=== PATIENT | female | born 1940 | race Caucasian/White ===

== ENCOUNTER → 2017-09-03 | Outpatient (CLI) | payer MEDICARE, OTHER ==
[~2017-09-03] MED LIST: ASPI81TA3 PO; ATEN50TA PO; CLOP75TA27 PO; ENAL5TAB PO; NITR0.4T32 SL; ROSU40TA35 PO; SOLI5TAB5 PO
== END | disposition home or self-care (01) ==
LOC: EEG 10:39
PROVIDERS: ATTEND Family Medicine Adult Medicine
DX: G40.909 Epilepsy, unspecified, not intractable, without status epilepticus (principal)
CPT/HCPCS: 95819

== ENCOUNTER 2017-10-28 16:07 | Inpatient (IN) | END 2017-11-02 19:11 | disposition home health service (06) | DRG 101 ==

== ENCOUNTER 2018-02-25 01:32 | Observation (INO) | END 2018-02-26 19:20 | disposition home or self-care (01) ==

== ENCOUNTER 2018-12-15 17:07 | Observation (INO) | payer MEDICARE, OTHER ==
[~2018-12-15] VITALS: Ht 162.6 cm; Wt 69.8 kg
[~2018-12-15 17:07] MED LIST changes: +ASPI-817 PO; -ASPI81TA3 PO; +CALC500T11 PO; +CHOL100062 PO; +CLOP75TA19 PO; -CLOP75TA27 PO; -ENAL5TAB PO; +EZET1TAB42 PO; +GABA300C16 PO; +LACO100T3 PO; +LOSA25TA12 PO; -NITR0.4T32 SL; +OLOP2.5D5 OP; -ROSU40TA35 PO; +SOLI5TAB2 PO; -SOLI5TAB5 PO; +TERB250T46 PO
[2018-12-15] MEDS ORDERED: ACETAMINOPHEN 325 MG TAB PO PRN ×2 (18:30→19:00)
[2018-12-15] MEDS ORDERED: ONDANSETRON 4 MG INJ IV PRN ×2 (18:30→19:00)
[2018-12-15] MEDS ORDERED: POTASSIUM CHLORIDE (SR) 20 MEQ TAB PO STA (18:33)
--- NOTE | 2018-12-15 18:34 | ERD ---
ER Documentation Chief Complaint Chief Complaint chest pain since this morning HPI This is a 78-year-old female with a history of hypertension, hyperlipidemia, previous [place] and quadruple bypass with previous CVA who presents to the ER for evaluation of chest pain. The patient states the chest pain is located in the center of the chest and is described as a pressure-like sensation. In route to the hospital the patient received aspirin and nitro and she states that her pain has improved slightly however it is still present. The patient denies any nausea, vomiting, diaphoresis, diarrhea associated with her symptoms and came to the ER for evaluation ROS All systems reviewed and are negative except as per history of present illness. Medications Home Meds Reported Medications Calcium Carbonate (Oysco-500) 500 Mg Tablet, 500 MG PO, TAB 02/25/18 Cholecalciferol* (Vitamin D3*) 1,000 Unit Tablet, 3000 UNIT PO DAILY, TAB 02/25/18 Aspirin* (Aspirin* EC) 81 Mg Tablet.dr, 81 MG PO DAILY, TAB 02/25/18 Clopidogrel Bisulfate* (Clopidogrel Bisulfate*) 75 Mg Tablet, 75 MG PO DAILY, #30 TAB 02/25/18 Losartan Potassium* (Losartan Potassium*) 25 Mg Tablet, 25 MG PO BID, TAB 02/25/18 Gabapentin* (Gabapentin*) 300 Mg Capsule, 300 MG PO BID, #60 CAP 02/25/18 Terbinafine* (Lamisil*) 250 Mg Tablet, 250 MG PO BID, TAB 02/25/18 Atenolol* (Atenolol*) 50 Mg Tablet, 50 MG PO DAILY, #30 TAB 02/25/18 Olopatadine HCl (Pazeo) 2.5 Ml Drops, 2.5 ML OP DAILY, BOTTLE 10/26/17 Lacosamide (Vimpat) 100 Mg Tablet, 100 MG PO BID, TAB 10/26/17 Ezetimibe/Simvastatin (Vytorin 10-40 mg Tablet) 1 Each Tablet, 1 EACH PO DAILY, TAB 10/26/17 Solifenacin* (Vesicare*) 5 Mg Tablet, 5 MG PO DAILY, TAB 01/09/16 Allergies Allergies: Coded Allergies: No Known Allergy (Unverified , 02/26/18) PMhx/Soc History of Surgery: Yes (bypass, hip replacement) Anesthesia Reaction: Yes Hx Neurological Disorder: No Hx Respiratory Disorders: No Hx Cardiac Disorders: Yes (stent placements , HTN, high colsterol) Hx Psychiatric Problems: No Hx Miscellaneous Medical Probl: No Hx Alcohol Use: No Hx Substance Use: No Hx Tobacco Use: No Smoking Status: Never smoker Physical Exam Vitals Vital Signs Date Temp Pulse Resp B/P (MAP) Pulse Ox O2 O2 Flow FiO2 Time Delivery Rate 12/15/18 97.8 67 18 162/98 96 17:22 (119) Physical Exam Const: No acute distress Head: Atraumatic Eyes: Normal Conjunctiva ENT: Normal External Ears, Nose and Mouth. Neck: Full range of motion. No meningismus. Resp: Clear to auscultation bilaterally Cardio: Regular rate and rhythm, no murmurs Abd: Soft, non tender, non distended. Normal bowel sounds Skin: No petechiae or rashes Back: No midline or flank tenderness Ext: No cyanosis, or edema Neur: Awake and alert Psych: Normal Mood and Affect Result Diagram: 12/15/18 1735 12/15/18 1735 Results 24 hrs Laboratory Tests Test 12/15/18 17:35 White Blood Count 7.7 10^3/ul Red Blood Count 4.23 10^6/ul Hemoglobin 14.4 g/dl Hematocrit 42.8 % Mean Corpuscular Volume 101.2 fl Mean Corpuscular Hemoglobin 34.0 pg Mean Corpuscular Hemoglobin Concent 33.6 g/dl Red Cell Distribution Width 12.6 % Platelet Count 208 10^3/UL Mean Platelet Volume 9.5 fl Immature Granulocytes % 0.400 % Neutrophils % 73.1 % Lymphocytes % 11.5 % Monocytes % 14.4 % Eosinophils % 0.0 % Basophils % 0.6 % Nucleated Red Blood Cells % 0.0 /100WBC Immature Granulocytes # 0.030 10^3/ul Neutrophils # 5.7 10^3/ul Lymphocytes # 0.9 10^3/ul Monocytes # 1.1 10^3/ul Eosinophils # 0.0 10^3/ul Basophils # 0.1 10^3/ul Nucleated Red Blood Cells # 0.0 10^3/ul Sodium Level 137 mmol/L Potassium Level 3.1 mmol/L Chloride Level 100 mmol/L Carbon Dioxide Level 26 mmol/L Anion Gap 11 Blood Urea Nitrogen 13 mg/dl Creatinine 0.68 mg/dl Est Glomerular Filtrat Rate mL/min mL/min Glucose Level 117 mg/dl Calcium Level 9.0 mg/dl Total Bilirubin 0.6 mg/dl Direct Bilirubin 0.00 mg/dl Indirect Bilirubin 0.6 mg/dl Aspartate Amino Transf (AST/SGOT) 58 IU/L Alanine Aminotransferase (ALT/SGPT) 32 IU/L Alkaline Phosphatase 110 IU/L Troponin I < 0.012 ng/ml B-Type Natriuretic Peptide 604 PG/ML Total Protein 6.4 g/dl Albumin 3.6 g/dl Globulin 2.80 g/dl Albumin/Globulin Ratio 1.28 Current Medications Medications Dose Sig/Georgette Start Time Status Last (Trade) Ordered Route PRN Stop Time Admin Dose Reason Admin Ondansetron 4 mg ER BRIDGE 12/15/18 HCl (Zofran PRN IV 18:30 Inj) NAUSEA/VOMITI 12/16/18 18:29 NG 650 mg ER BRIDGE 12/15/18 Acetaminophen PRN PO 18:30 (Tylenol .MILD PAIN 12/16/18 18:29 Tab) 1-3 OR TEMP Procedures/MDM Chest X-ray 1V Interpreted by me: Soft Tissue: No acute abnormalities Bones: No acute abnormalities Mediastinum/Cardiac Silhouette/Lungs: [No acute abnormalities] EKG: Rate/Rhythm: Sinus rhythm with PVCs QRS, ST, T-waves: [No changes consistent w/ acute ischemia] Impression: [No evidence of ischemia or arrhythmia] This 78-year-old female presents to the ER for evaluation of chest pain. The patient does have a significant cardiac history including a quadruple bypass. On my exam the patient is afebrile, nontoxic-appearing and hemodynamically stable in no respiratory distress. Her lab work does not demonstrate an elevate d troponin at this time and her EKG does show normal sinus rhythm with PVCs. Chest x-ray is clear however given the patient's age and risk factors the patient will be admitted at this time for further evaluation and continued monitoring and repeat troponins. The patient will be admitted to panel harry Oconnor. Patient did have a potassium of 3.1 was given 40 MeQ once of potassium by mouth Departure Diagnosis: Primary Impression: Chest pain Additional Impression: Hypokalemia Condition: PANKAJ Edwards DO Dec 15, 2018 18:34
[2018-12-15] MEDS ORDERED: NACL 0.9% 3 ML SYG IV SCH (19:00)
[2018-12-15] MEDS ORDERED: NITROGLYCERIN (SL) 0.4 MG TAB SL PRN (19:00)
[2018-12-15] MEDS ORDERED: hydrALAzine 20 MG INJ IV PRN (19:00)
[2018-12-15] MEDS ORDERED: HYDROCODONE/APAP (5/325) TAB PO PRN (19:00)
[2018-12-15 20:00] VITALS: PULSE 85; Ht 162.6 cm; Wt 69.8 kg
[2018-12-15 20:30] VITALS: BP 153/87; PULSE 82; RESP 18
[2018-12-15] MEDS ORDERED: ATORVASTATIN 80 MG TAB PO SCH (21:00)
[2018-12-15] MEDS: morphine 2 MG INJ IV PRN (21:01)
--- NOTE | 2018-12-15 23:48 | HP ---
Date/Time of Note Date/Time of Note DATE: 12/15/18 TIME: 23:48 Assessment/Plan VTE Prophylaxis Pharmacological prophylaxis: heparin Lines/Catheters IV Catheter Type (from Nrsg): Saline Lock Assessment/Plan Assessment/Plan 1. Chest pain: Rule out ACS -Supplemental oxygen, aspirin/Plavix, statin, beta-abdulaziz. As needed nitro and morphine -Trend troponin -2D echo and cardiology consult 2. Hypertension: Adjust BP meds as needed 3. Dyslipidemia: Continue statin 4. Hypokalemia: Replete Result Diagram: 12/15/18 1735 12/15/18 1735 Results 24hrs Laboratory Tests Test 12/15/18 17:35 White Blood Count 7.7 Red Blood Count 4.23 Hemoglobin 14.4 Hematocrit 42.8 Mean Corpuscular Volume 101.2 H Mean Corpuscular Hemoglobin 34.0 H Mean Corpuscular Hemoglobin Concent 33.6 Red Cell Distribution Width 12.6 Platelet Count 208 # Mean Platelet Volume 9.5 Immature Granulocytes % 0.400 Neutrophils % 73.1 Lymphocytes % 11.5 L Monocytes % 14.4 H Eosinophils % 0.0 Basophils % 0.6 Nucleated Red Blood Cells % 0.0 Immature Granulocytes # 0.030 Neutrophils # 5.7 Lymphocytes # 0.9 Monocytes # 1.1 H Eosinophils # 0.0 Basophils # 0.1 Nucleated Red Blood Cells # 0.0 Sodium Level 137 Potassium Level 3.1 L Chloride Level 100 Carbon Dioxide Level 26 Anion Gap 11 Blood Urea Nitrogen 13 Creatinine 0.68 Est Glomerular Filtrat Rate mL/min Glucose Level 117 Calcium Level 9.0 Total Bilirubin 0.6 Direct Bilirubin 0.00 Indirect Bilirubin 0.6 Aspartate Amino Transf (AST/SGOT) 58 H Alanine Aminotransferase (ALT/SGPT) 32 Alkaline Phosphatase 110 Troponin I < 0.012 B-Type Natriuretic Peptide 604 H Total Protein 6.4 Albumin 3.6 Globulin 2.80 Albumin/Globulin Ratio 1.28 HPI/ROS Admit Date/Time Admit Date/Time Dec 15, 2018 at 18:24 Hx of Present Illness This is a 78-year-old female with a history of hypertension, dyslipidemia, CAD status post stent, CABG in 2000 who presented to ER complaining of chest pain x 1 day. The pain is left-sided, described as sharp. It is nonradiating. No associated shortness of breath, nausea/vomiting or diaphoresis. She told me that she has not had any chest pain since her CABG in 2000. In the ER, first troponin is negative. EKG without ST elevation or depression. 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 PMH/Family/Social Past Medical History Medications Current Medications IV Flush (NS 3 ml) 3 ml PER PROTOCOL IV ; Start 12/15/18 at 19:00 Ondansetron HCl (Zofran Inj) 4 mg Q6H PRN IV NAUSEA/VOMITING; Start 12/15/18 at 19:00 Aspirin (Aspirin) 81 mg DAILY PO ; Start 12/16/18 at 09:00 Nitroglycerin (Nitroglycerin (Sl Tab) 0.4 Mg) 1 tab Q5M PRN SL .CHEST PAIN; Start 12/15/18 at 19:00 Acetaminophen (Tylenol Tab) 650 mg Q6H PRN PO .PAIN 1-3 OR TEMP; Start 12/15/18 at 19:00 Acetaminophen/ Hydrocodone Bitart ([place]gora (5/325)) 1 tab Q6H PRN PO .PAIN 4-6 Last administered on 12/15/18at 22:48; Admin Dose 1 TAB; Start 12/15/18 at 19:00 Morphine Sulfate (morphine) 2 mg Q4H PRN IV .PAIN 7-10 Last administered on 12/15/18at 21:01; Admin Dose 2 MG; Start 12/15/18 at 19:00 Hydralazine HCl (Apresoline) 10 mg Q4H PRN IV sbp >160; Start 12/15/18 at 19:00 Atorvastatin Calcium (Lipitor) 80 mg HS PO Last administered on 12/15/18at 21:04; Admin Dose 80 MG; Start 12/15/18 at 21:00 Coded Allergies: No Known Allergy (Unverified , 02/26/18) Past Surgical History Past Surgical Hx: other Family History Significant Family History: no pertinent family hx Social History Smoking Status: Never smoker Exam/Review of Systems Vital Signs Vitals Vital Signs Date Temp Pulse Resp B/P (MAP) Pulse Ox O2 O2 Flow FiO2 Time Delivery Rate 12/15/18 85 20:00 12/15/18 18 171/97 100 Room Air 18:59 (121) 12/15/18 97.8 17:22 ALETHEA SNELL MD Dec 15, 2018 23:48
[2018-12-15 23:54] VITALS: BP 151/65; PULSE 82; RESP 18
[2018-12-16] VITALS (11 sets, daily range): BP systolic 101–148; BP diastolic 56–76; PULSE 63–83; RESP 18–20
[2018-12-16] MEDS: morphine 2 MG INJ IV PRN ×2 (01:18→08:29)
[2018-12-16] MEDS: EZETIMIBE 10 MG TAB PO SCH (08:27)
[2018-12-16] MEDS: ASPIRIN 81 MG TAB PO SCH (08:27)
[2018-12-16] MEDS: GABAPENTIN 300 MG CAP PO SCH ×2 (08:27→20:31)
[2018-12-16] MEDS: CLOPIDOGREL 75 MG TAB PO SCH (08:28)
[2018-12-16] MEDS: ATENOLOL 50 MG TAB PO SCH (08:28)
[2018-12-16] MEDS: LOSARTAN 25 MG TAB PO SCH ×2 (08:28→20:31)
[2018-12-16] MEDS: ATORVASTATIN 20 MG TAB PO SCH (08:28)
[2018-12-16] MEDS: LACOSAMIDE (100 MG/10 ML PO SYR) PO SCH ×3 (08:28→20:47)
[2018-12-16] MEDS ORDERED: NON-FORMULARY/PATIENT OWN MED (Olopatadine HCl (Pazeo) 2.5 ML) OP SCH (09:00)
[2018-12-16] MEDS ORDERED: NON-FORMULARY/PATIENT OWN MED (Lacosamide (Vimpat) 100 MG) PO SCH (09:00)
[2018-12-16] MEDS ORDERED: POTASSIUM CHLORIDE (SR) 20 MEQ TAB PO STA (14:23)
[2018-12-16] MEDS ORDERED: MAGNESIUM SULFATE 4 GM/100 ML 100 ML IVPB ONE (15:30)
--- NOTE | 2018-12-16 18:42 | PN ---
Date/Time of Note Date/Time of Note DATE: 12/16/18 TIME: 18:41 Assessment/Plan VTE Prophylaxis Risk score (from Ns)>0 risk: 4 SCD applied (from Ns): Yes Pharmacological prophylaxis: other (scds) Lines/Catheters IV [facility] Saline Lock Assessment/Plan Hospital Course S: Stll having chest pain, but its located around the lower L chest and upper L abdomen, intermittent and sharp and relieved with morphine O: Constitutional: alert, oriented, elderly, no distress Head: atraumatic, normocephalic Neck: non-tender, supple Respiratory: clear to auscultation Cardiovascular: regular rate and rhythm Gastrointestinal: S/ NT / ND / +BS Extremities: no edema, good radial pulses assessment and plan: 1. Chest pain: Rule out ACS -patient has had 3 negative cardiac enzymes but is still symptomatic with an extensive cardiac hx -last stress test was 5 years ago -will benefit from repeat -also f/u 2d echo -will also get CT to eval for possible L sided atelectasis in CXR, but patient has had no cough or fever so RTI is less likely 2. Hypertension: controlled on current meds 3. Dyslipidemia: Continue statin 4. Hypokalemia: Replete further interventions per course. Result Diagram: 12/16/1852612/16/18526 Results 24hrs Laboratory Tests Test 12/15/18 23:34 12/16/18 05:27 Creatine Kinase 26 22 L Creatine Kinase Index 1.7 1.9 Creatinine Kinase MB (Mass) 0.44 0.42 Troponin I 0.017 0.017 White Blood Count 5.8 # Red Blood Count 3.93 L Hemoglobin 13.3 Hematocrit 39.8 Mean Corpuscular Volume 101.3 H Mean Corpuscular Hemoglobin 33.8 H Mean Corpuscular Hemoglobin Concent 33.4 Red Cell Distribution Width 12.3 Platelet Count 204 Mean Platelet Volume 9.9 Immature Granulocytes % 0.300 Neutrophils % 51.9 Lymphocytes % 28.2 Monocytes % 17.7 H Eosinophils % 1.0 Basophils % 0.9 Nucleated Red Blood Cells % 0.0 Immature Granulocytes # 0.020 Neutrophils # 3.0 Lymphocytes # 1.6 Monocytes # 1.0 H Eosinophils # 0.1 Basophils # 0.1 Nucleated Red Blood Cells # 0.0 Sodium Level 138 Potassium Level 3.3 L Chloride Level 100 Carbon Dioxide Level 29 Anion Gap 9 Blood Urea Nitrogen 12 Creatinine 0.61 Est Glomerular Filtrat Rate mL/min Glucose Level 92 Hemoglobin A1c 4.9 Calcium Level 8.6 Magnesium Level 1.2 L Total Bilirubin 0.8 Direct Bilirubin 0.00 Indirect Bilirubin 0.8 Aspartate Amino Transf (AST/SGOT) 38 Alanine Aminotransferase (ALT/SGPT) 37 Alkaline Phosphatase 97 Total Protein 5.8 L Albumin 3.1 L Globulin 2.70 Albumin/Globulin Ratio 1.14 Triglycerides Level 74 Cholesterol Level 183 LDL Cholesterol, Calculated 83 HDL Cholesterol 85 Cholesterol/HDL Ratio 2.1 Exam/Review of Systems Exam Vitals Vital Signs Date Temp Pulse Resp B/P (MAP) Pulse Ox O2 O2 Flow FiO2 Time Delivery Rate 12/16/18 97.4 66 18 116/76 92 16:02 (89) 12/16/18 Room Air 04:04 Intake and Output 12/15/18 12/15/18 12/16/18 1515:00 23:00 07:00 IntakeIntake Total 250 ml BalanceBalance 250 ml Results Results 24hrs Laboratory Tests Test 12/15/18 23:34 12/16/18 05:27 Creatine Kinase 26 22 L Creatine Kinase Index 1.7 1.9 Creatinine Kinase MB (Mass) 0.44 0.42 Troponin I 0.017 0.017 White Blood Count 5.8 # Red Blood Count 3.93 L Hemoglobin 13.3 Hematocrit 39.8 Mean Corpuscular Volume 101.3 H Mean Corpuscular Hemoglobin 33.8 H Mean Corpuscular Hemoglobin Concent 33.4 Red Cell Distribution Width 12.3 Platelet Count 204 Mean Platelet Volume 9.9 Immature Granulocytes % 0.300 Neutrophils % 51.9 Lymphocytes % 28.2 Monocytes % 17.7 H Eosinophils % 1.0 Basophils % 0.9 Nucleated Red Blood Cells % 0.0 Immature Granulocytes # 0.020 Neutrophils # 3.0 Lymphocytes # 1.6 Monocytes # 1.0 H Eosinophils # 0.1 Basophils # 0.1 Nucleated Red Blood Cells # 0.0 Sodium Level 138 Potassium Level 3.3 L Chloride Level 100 Carbon Dioxide Level 29 Anion Gap 9 Blood Urea Nitrogen 12 Creatinine 0.61 Est Glomerular Filtrat Rate mL/min Glucose Level 92 Hemoglobin A1c 4.9 Calcium Level 8.6 Magnesium Level 1.2 L Total Bilirubin 0.8 Direct Bilirubin 0.00 Indirect Bilirubin 0.8 Aspartate Amino Transf (AST/SGOT) 38 Alanine Aminotransferase (ALT/SGPT) 37 Alkaline Phosphatase 97 Total Protein 5.8 L Albumin 3.1 L Globulin 2.70 Albumin/Globulin Ratio 1.14 Triglycerides Level 74 Cholesterol Level 183 LDL Cholesterol, Calculated 83 HDL Cholesterol 85 Cholesterol/HDL Ratio 2.1 Medications Medication Current Medications IV Flush (NS 3 ml) 3 ml PER PROTOCOL IV ; Start 12/15/18 at 19:00 Ondansetron HCl (Zofran Inj) 4 mg Q6H PRN IV NAUSEA/VOMITING; Start 12/15/18 at 19:00 Aspirin (Aspirin) 81 mg DAILY PO Last administered on 12/16/18 08:27; Admin Dose 81 MG; Start 12/16/18 at 09:00 Nitroglycerin (Nitroglycerin (Sl Tab) 0.4 Mg) 1 tab Q5M PRN SL .CHEST PAIN; Start 12/15/18 at 19:00 Acetaminophen (Tylenol Tab) 650 mg Q6H PRN PO .PAIN 1-3 OR TEMP; Start 12/15/18 at 19:00 Acetaminophen/ Hydrocodone Bitart ([place]ol (5/325)) 1 tab Q6H PRN PO .PAIN 4-6 Last administered on 12/15/18at 22:48; Admin Dose 1 TAB; Start 12/15/18 at 19:00 Morphine Sulfate (morphine) 2 mg Q4H PRN IV .PAIN 7-10 Last administered on 12/16/18 08:29; Admin Dose 2 MG; Start 12/15/18 at 19:00 Hydralazine HCl (Apresoline) 10 mg Q4H PRN IV sbp >160; Start 12/15/18 at 19:00 Atenolol (Tenormin) 50 mg DAILY PO Last administered on 12/16/18 08:28; Admin Dose 50 MG; Start 12/16/18 at 09:00 Clopidogrel Bisulfate (plaVIX) 75 mg DAILY PO Last administered on 12/16/18 08:28; Admin Dose 75 MG; Start 12/16/18 at 09:00 Gabapentin (Neurontin) 300 mg BID PO Last administered on 12/16/18 08:27; Admin Dose 300 MG; Start 12/16/18 at 09:00 Losartan Potassium (Cozaar) 25 mg BID PO Last administered on 12/16/18 08:28; Admin Dose 25 MG; Start 12/16/18 at 09:00 EZETIMIBE (Zetia) 10 mg DAILY PO Last administered on 12/16/18 08:27; Admin Dose 10 MG; Start 12/16/18 at 09:00 Miscellaneous Information 2.5 ml DAILY OP ; Start 12/16/18 at 09:00; Status UNV Lacosamide (Vimpat Liq) 100 mg BID PO Last administered on 12/16/18at 08:28; Admin Dose 100 MG; Start 12/16/18 at 09:00 Atorvastatin Calcium (Lipitor) 20 mg DAILY PO Last administered on 12/16/18 08:28; Admin Dose 20 MG; Start 12/16/18 at 09:00 Magnesium Sulfate 100 ml @ 25 mls/hr ONCE ONCE IVPB Last administered on 12/16/18at 15:51; Admin Dose 25 MLS/HR; Start 12/16/18 at 15:30; Stop 12/16/18 at 19:29 GARY HALLMAN Dec 16, 2018 18:42
--- NOTE | 2018-12-16 18:59 | CONS ---
DATE OF ADMISSION: 12/15/2018 DATE OF CONSULTATION: 12/16/2018 TYPE OF CONSULTATION: Cardiology. REASON FOR CONSULTATION: Chest pain, assess for acute coronary syndrome. REQUESTING PHYSICIAN: Gary Hallman MD, from the hospitalist service. HISTORY OF PRESENT ILLNESS: Ms. Puga is a 78-year-old female with history of hypertension, dyslipidemia, coronary artery disease, status post coronary artery bypass graft surgery with a patent saphenous vein graft to diagonal and retrograde flow to the LAD and to right coronary artery by catheterization in 2015 with a presumed occluded saphenous vein graft to circumflex, who now presents with complaints of substernal chest pain poorly described. The patient does not clearly respond to questioning with chest pain, shortness of breath at this time. Initially upon arrival, temperature was 97.8, blood pressure 162/98, pulse 69, respiration 18, satting 93%. The patient's labs showed white blood cell count 7.7, hemoglobin 14.4, platelet count of 208, sodium 137, potassium 3.1, creatinine of 0.6, BUN 13, magnesium 1.2. Troponin is negative. BNP is 604. LDL 83, HDL 85. The patient underwent a chest x-ray that revealed mild cardiomegaly, moderate elevation of left diaphragm with left lower lobe atelectasis. The patient's electrocardiogram revealed a sinus rhythm, rate of 84, normal axis, normal intervals with nonspecific ST-T wave abnormalities diffusely and PVCs. The patient was subsequently admitted to the floor and since admit to the floor has had intermittent chest pain. The patient has had negative troponins times total of 3 ruling out acute myocardial infarction. PAST MEDICAL HISTORY: As above in HPI. MEDICATIONS CURRENTLY IN HOSPITAL: 1. Aspirin 81 mg daily. 3. Plavix 75 mg daily. 4. Neurontin 200 mg b.i.d. 5. Losartan 25 mg b.i.d. 6. Zetia 10 mg daily. 7. Atorvastatin 10 mg at bedtime. 8. Zofran p.r.n. 9. Tylenol p.r.n. 10. Nitroglycerin p.r.n. 11. [place] p.r.n. 12. Morphine p.r.n. ALLERGIES: NO KNOWN DRUG ALLERGIES. SOCIAL HISTORY: No current tobacco, EtOH or illicit drug use. FAMILY HISTORY: No history of sudden cardiac or early CAD. REVIEW OF SYSTEMS: As above in HPI. CONSTITUTIONAL: No fevers, chills. PULMONARY: No current shortness of breath. CARDIOVASCULAR: No chest pain. GASTROINTESTINAL: No vomiting. GENITOURINARY: No hematuria. MUSCULOSKELETAL: Degenerative joint disease. PSYCHIATRIC: The patient denies depression. NEUROLOGIC: No documented history of CVA. ENDOCRINE: No documented history of diabetes mellitus. PHYSICAL EXAMINATION: VITAL SIGNS: Temperature of 97.4, blood pressure 130/80 pulse 66, respiratory rate 18, satting 93%. GENERAL: The patient is alert, awake, in no acute distress. NECK: JVP approximately is 8 to 9 cm of water. CHEST: Fair air movement throughout. HEART: Regular rate and rhythm. Normal S1, S2, I/ systolic murmur, nondisplaced PMI. ABDOMEN: Positive bowel sounds, soft. EXTREMITIES: No significant pitting edema, 1+ pulses bilateral posterior tibial. LABORATORIES: As above in HPI, with most recently from today, white blood cell count 5.8, hemoglobin 13.3, platelet count of 204. Sodium 138, potassium 3.3, creatinine of 0.6, BUN 12. IMAGING STUDIES: As above in HPI. No further imaging studies for my review at this time. ELECTROCARDIOGRAM: As above in HPI. No further electrocardiograms for my review at this time. IMPRESSION: 1. Chest pain, assess for acute coronary syndrome with negative troponins x3 at this time. 2. Abnormal electrocardiogram with diffuse nonspecific ST and T-wave abnormalities, assess for acute coronary syndrome. 3. Premature ventricular contractions by electrocardiogram, assess for acute coronary syndrome. 4. Hypertension, reasonable control. 5. Dyslipidemia. 6. History of coronary artery disease, status post coronary artery bypass grafting surgery with patient having a patent graft to diagonal retrograde filling the LAD and right coronary artery by catheterization in 2016 with presumed occluded saphenous vein graft to circumflex distribution. 7. Neuropathy. RECOMMENDATIONS: 1. At this time, we would maintain the patient on telemetry monitoring to follow rhythm and rates closely. 2. We would continue the patient's current aspirin and Plavix for prevention of further cardiovascular events. 3. Continue the patient's losartan and atenolol, following blood pressure and heart rate closely. 4. We will check a 2D echo for reassessment of patient's ejection fraction, last EF approximately 40% to 45% by echo in 02/2018. 5. Continue the patient's current Zetia and statin and adjust it according to a fasting lipid panel to be rechecked. 6. The patient has ruled out but continues to have chest pain, we will additionally schedule patient for further inpatient risk stratification with a stress test to take place first thing in the morning. Thank you for allowing me to take part in the care of this patient. I will continue to follow her very closely with you with further recommendations will be made as the patient progresses through her inpatient hospital clinical course. Dictated By: MINNIE VALENCIA/WILLIAN Conf#: [id number] DID#: [id number] CC: ALETHEA SNELL MD; GARY HALLMAN MD;*EndCC* MTDD
--- NOTE | 2018-12-16 21:19 | RADRPT ---
Echocardiogram Report Patient Name: Basilio DONAHUEtient ID: [id number] : 1940 (78y 7m)Study Date: 12/16/2018 7:29:27 AM Gender: FAccession #: [id number] Tech: Ruth Ospina [facility] Location: 6 Ref.Physician: ALETHEA SNELL Height(Cm): BSA: Weight(Kg): Quality: Technically Difficult StudyAccount #: Procedures: Echocardiographic Report: Transthoracic echocardiogram with complete 2D, M-Mode, and doppler examination. Indications: Chest Pain. Measurements: 2D/M Mode Doppler Measurement Value Normal Range Measurement Value Normal Range LVIDd 2D 4.7 [ 3.8 - 5.2 ] cm AV Peak Tim 1.7 [ 100.0 - 170.0 ] cm/sec LVIDs 2D 3.9 [ 2.2 - 3.5 ] cm AV Peak PG 12.0 [ 2.0 - 9.0 ] mmHg LVPWd 2D 1.0 [ 0.6 - 0.9 ] cm LVOT Peak Tim 0.8 [ 70.0 - 110.0 ] cm/sec IVSd 2D 1.3 [ 0.6 - 0.9 ] cm LVOT Peak PG 3.0 [ 2.0 - 6.0 ] mmHg AoR Diam 2D 3.0 [ 2.3 - 3.1 ] cm EDV 2D 100.0 [ 46.0 - 106.0 ] ml ESV 2D 67.1 [ 14.0 - 42.0 ] ml EF 2D 32.9 [ 54.0 - 74.0 ] percent LA Dimen 2D 4.1 [ 2.7 - 3.8 ] cm Findings: Left Ventricle: Normal left ventricular cavity size. Mild asymmetric septal hypertrophy. Mild left ventricular systolic dysfunction. Ejection fraction is visually estimated at 40-45 %. Tissue Doppler/Mitral Doppler indices are consistent with impaired relaxation (Stage I diastolic dysfunction). Right Ventricle: Normal right ventricular size. Normal right ventricular systolic function. Left Atrium: There is mild enlargement of left atrium. Right Atrium: The right atrium is normal in size. Mitral Valve: Normal appearance of the mitral valve. Mild mitral annular calcification. Trace mitral regurgitation. Aortic Valve: Aortic valve not well visualized. Aortic cusps appear mildly calcified. Tricuspid Valve: Normal appearance of the tricuspid valve. Unable to obtain RVSP due to minimal presence of tricuspid regurgitation. Pulmonic Valve: Normal pulmonic valve appearance. Pericardium: Normal pericardium with no significant pericardial effusion. Aorta: Normal aortic root. IVC: Normal size and normal respiratory collapse consistent with normal right atrial pressure. Conclusions: Normal left ventricular cavity size. Mild asymmetric septal hypertrophy. Mild left ventricular systolic dysfunction. Ejection fraction is visually estimated at 40-45 %. Tissue Doppler/Mitral Doppler indices are consistent with impaired relaxation (Stage I diastolic dysfunction). There is mild enlargement of left atrium. Normal appearance of the mitral valve. Mild mitral annular calcification. Trace mitral regurgitation. Normal appearance of the tricuspid valve. Unable to obtain RVSP due to minimal presence of tricuspid regurgitation. Electronically Signed By: Dilshad Duncan 2018-12-16 21:19:17 PST
[2018-12-17] VITALS (9 sets, daily range): BP systolic 113–137; BP diastolic 58–76; PULSE 62–77; RESP 18–20
[2018-12-17] MEDS: CLOPIDOGREL 75 MG TAB PO SCH (08:51)
[2018-12-17] MEDS: GABAPENTIN 300 MG CAP PO SCH (08:51)
[2018-12-17] MEDS: EZETIMIBE 10 MG TAB PO SCH (08:52)
[2018-12-17] MEDS: ASPIRIN 81 MG TAB PO SCH (08:52)
[2018-12-17] MEDS: ATORVASTATIN 20 MG TAB PO SCH (08:52)
[2018-12-17] MEDS: LOSARTAN 25 MG TAB PO SCH (08:53)
[2018-12-17] MEDS: ATENOLOL 50 MG TAB PO SCH (08:53)
[2018-12-17] MEDS ORDERED: REGADENOSON 0.4 MG/5 ML SYG ONE (10:11)
--- NOTE | 2018-12-17 11:03 | CONS ---
Assessment/Plan Assessment/Plan Hospital Course (Demo Recall) IMPRESSION: 1. Chest pain, assess for acute coronary syndrome with negative troponins x3 at this time. 2. Abnormal electrocardiogram with diffuse nonspecific ST and T-wave abnormalities, assess for acute coronary syndrome. 3. Premature ventricular contractions by electrocardiogram, assess for acute coronary syndrome. 4. Hypertension, reasonable control. 5. Dyslipidemia. 6. History of coronary artery disease, status post coronary artery bypass grafting surgery with patient having a patent graft to diagonal retrograde filling the LAD and right coronary artery by catheterization in 2016 with presumed occluded saphenous vein graft to circumflex distribution. 7. Neuropathy. Recc: -Tele -Contine asa/plavix -Continue losartan/atenolol -Continue zetia/statin -Lexiscan stress test today Consultation Date/Type/Reason Admit Date/Time Dec 15, 2018 at 18:24 Initial Consult Date 12/16/18 Type of Consult Cardiology Reason for Consultation chest pain Requesting Provider: GARY HALLMAN Date/Time of Note DATE: 12/17/18 TIME: 11:00 Exam/Review of Systems Vital Signs Vitals Vital Signs Date Temp Pulse Resp B/P (MAP) Pulse Ox O2 O2 Flow FiO2 Time Delivery Rate 12/17/18 70 08:23 12/17/18 98.3 18 137/74 95 07:21 (95) 12/16/18 Room Air 04:04 Intake and Output 12/16/18 12/16/18 12/17/18 1515:00 23:00 07:00 IntakeIntake Total 620 ml BalanceBalance 620 ml Exam Exam Review of Systems: CONSTITUTIONAL: No fevers, chills. PULMONARY: No sob CARDIOVASCULAR: intermittent chest pain GASTROINTESTINAL: No nausea/vomiting. GENITOURINARY: No hematuria/dysuria. MUSCULOSKELETAL: No myagias/arthalgias. PSYCHIATRIC: The patient denies depression. NEUROLOGIC: No weakness Constitutional: alert Psych: no complaints Head: normocephalic ENMT: mucosa pink and moist Neck: supple, jvd (9 cm water) Respiratory: diminished breath sounds Cardiovascular: regular rate and rhythm Gastrointestinal: soft, non-tender Musculoskeletal: muscle tone (normal) Extremities: edema (none) Neurological: other (No focal deficits) Labs Result Diagram: 12/16/18 0527 12/16/18 0527 Results 24hrs Laboratory Tests Test 12/17/18 05:09 Magnesium Level 2.2 # Triglycerides Level 78 Cholesterol Level 180 LDL Cholesterol, Calculated 84 HDL Cholesterol 80 Cholesterol/HDL Ratio 2.2 Medications Medications Current Medications IV Flush (NS 3 ml) 3 ml PER PROTOCOL IV ; Start 12/15/18 at 19:00 Ondansetron HCl (Zofran Inj) 4 mg Q6H PRN IV NAUSEA/VOMITING; Start 12/15/18 at 19:00 Aspirin (Aspirin) 81 mg DAILY PO Last administered on 12/17/18at 08:52; Admin Dose 81 MG; Start 12/16/18 at 09:00 Nitroglycerin (Nitroglycerin (Sl Tab) 0.4 Mg) 1 tab Q5M PRN SL .CHEST PAIN; Start 12/15/18 at 19:00 Acetaminophen (Tylenol Tab) 650 mg Q6H PRN PO .PAIN 1-3 OR TEMP; Start 12/15/18 at 19:00 Acetaminophen/ Hydrocodone Bitart ([place] (5/325)) 1 tab Q6H PRN PO .PAIN 4-6 Last administered on 12/15/18at 22:48; Admin Dose 1 TAB; Start 12/15/18 at 19:00 Morphine Sulfate (morphine) 2 mg Q4H PRN IV .PAIN 7-10 Last administered on 12/16/18 08:29; Admin Dose 2 MG; Start 12/15/18 at 19:00 Hydralazine HCl (Apresoline) 10 mg Q4H PRN IV sbp >160; Start 12/15/18 at 19:00 Atenolol (Tenormin) 50 mg DAILY PO Last administered on 12/17/18 08:53; Admin Dose 50 MG; Start 12/16/18 at 09:00 Clopidogrel Bisulfate (plaVIX) 75 mg DAILY PO Last administered on 12/17/18 08:51; Admin Dose 75 MG; Start 12/16/18 at 09:00 Gabapentin (Neurontin) 300 mg BID PO Last administered on 12/17/18 08:51; Admin Dose 300 MG; Start 12/16/18 at 09:00 Losartan Potassium (Cozaar) 25 mg BID PO Last administered on 12/17/18 08:53; Admin Dose 25 MG; Start 12/16/18 at 09:00 EZETIMIBE (Zetia) 10 mg DAILY PO Last administered on 12/17/18at 08:52; Admin Dose 10 MG; Start 12/16/18 at 09:00 Miscellaneous Information 2.5 ml DAILY OP ; Start 12/16/18 at 09:00; Status UNV Lacosamide (Vimpat Liq) 100 mg BID PO Last administered on 12/16/18at 08:28; Admin Dose 100 MG; Start 12/16/18 at 09:00 Atorvastatin Calcium (Lipitor) 20 mg DAILY PO Last administered on 12/17/18at 08:52; Admin Dose 20 MG; Start 12/16/18 at 09:00 MINNIE PUGH Dec 17, 2018 11:03
[2018-12-17] MEDS: LACOSAMIDE (100 MG/10 ML PO SYR) PO SCH (12:54)
--- NOTE | 2018-12-17 14:46 | PN ---
Date/Time of Note Date/Time of Note DATE: 12/17/18 TIME: 09:45 Assessment/Plan VTE Prophylaxis Risk score (from Nsg)>0 risk: 4 Pharmacological prophylaxis: NA/contraindicated Pharm contraindication: other Lines/Catheters IV Catheter Type (from Nrsg): Saline Lock Assessment/Plan Hospital Course S: no chest pain today, refused chest CT yesterday, but ok to do it now O: Constitutional: alert, oriented, elderly, no distress Head: atraumatic, normocephalic Neck: non-tender, supple Respiratory: clear to auscultation Cardiovascular: regular rate and rhythm Gastrointestinal: S/ NT / ND / +BS Extremities: no edema, good radial pulses assessment and plan: 1. Chest pain: Rule out ACS -patient has had 3 negative cardiac enzymes but is still symptomatic with an extensive cardiac hx -last stress test was 5 years ago -f/u stress test and CT chest 2. Hypertension: controlled on current meds 3. Dyslipidemia: Continue statin 4. Hypokalemia: Replete further interventions per course. Result Diagram: 12/16/1852612/16/18526 Results 24hrs Laboratory Tests Test 12/17/18 05:09 Magnesium Level 2.2 # Triglycerides Level 78 Cholesterol Level 180 LDL Cholesterol, Calculated 84 HDL Cholesterol 80 Cholesterol/HDL Ratio 2.2 Exam/Review of Systems Exam Vitals Vital Signs Date Temp Pulse Resp B/P (MAP) Pulse Ox O2 O2 Flow FiO2 Time Delivery Rate 12/17/18 62 12:21 12/17/18 98.3 18 137/74 95 07:21 (95) 12/16/18 Room Air 04:04 Intake and Output 12/16/18 12/16/18 12/17/18 1515:00 23:00 07:00 IntakeIntake Total 620 ml BalanceBalance 620 ml Results Results 24hrs Laboratory Tests Test 12/17/18 05:09 Magnesium Level 2.2 # Triglycerides Level 78 Cholesterol Level 180 LDL Cholesterol, Calculated 84 HDL Cholesterol 80 Cholesterol/HDL Ratio 2.2 Medications Medication Current Medications IV Flush (NS 3 ml) 3 ml PER PROTOCOL IV ; Start 12/15/18 at 19:00 Ondansetron HCl (Zofran Inj) 4 mg Q6H PRN IV NAUSEA/VOMITING; Start 12/15/18 at 19:00 Aspirin (Aspirin) 81 mg DAILY PO Last administered on 12/17/18 08:52; Admin Dose 81 MG; Start 12/16/18 at 09:00 Nitroglycerin (Nitroglycerin (Sl Tab) 0.4 Mg) 1 tab Q5M PRN SL .CHEST PAIN; Start 12/15/18 at 19:00 Acetaminophen (Tylenol Tab) 650 mg Q6H PRN PO .PAIN 1-3 OR TEMP; Start 12/15/18 at 19:00 Acetaminophen/ Hydrocodone Bitart ([place] (5/325)) 1 tab Q6H PRN PO .PAIN 4-6 Last administered on 12/15/18 22:48; Admin Dose 1 TAB; Start 12/15/18 at 19:00 Morphine Sulfate (morphine) 2 mg Q4H PRN IV .PAIN 7-10 Last administered on 12/16/18 08:29; Admin Dose 2 MG; Start 12/15/18 at 19:00 Hydralazine HCl (Apresoline) 10 mg Q4H PRN IV sbp >160; Start 12/15/18 at 19:00 Atenolol (Tenormin) 50 mg DAILY PO Last administered on 12/17/18 08:53; Admin Dose 50 MG; Start 12/16/18 at 09:00 Clopidogrel Bisulfate (plaVIX) 75 mg DAILY PO Last administered on 12/17/18 08:51; Admin Dose 75 MG; Start 12/16/18 at 09:00 Gabapentin (Neurontin) 300 mg BID PO Last administered on 12/17/18 08:51; Admin Dose 300 MG; Start 12/16/18 at 09:00 Losartan Potassium (Cozaar) 25 mg BID PO Last administered on 12/17/18 08:53; Admin Dose 25 MG; Start 12/16/18 at 09:00 EZETIMIBE (Zetia) 10 mg DAILY PO Last administered on 12/17/18 08:52; Admin Dose 10 MG; Start 12/16/18 at 09:00 Miscellaneous Information 2.5 ml DAILY OP ; Start 12/16/18 at 09:00; Status UNV Lacosamide (Vimpat Liq) 100 mg BID PO Last administered on 12/17/18 12:54; Admin Dose 100 MG; Start 12/16/18 at 09:00 Atorvastatin Calcium (Lipitor) 20 mg DAILY PO Last administered on 12/17/18at 08:52; Admin Dose 20 MG; Start 12/16/18 at 09:00 GARY HALLMAN Dec 17, 2018 14:46
--- NOTE | 2018-12-17 14:48 | DS ---
Date/Time of Note Date/Time of Note DATE: 12/17/18 TIME: 14:47 Discharge Summary Admission/Discharge Info Admit Date/Time Dec 15, 2018 at 18:24 Discharge Date/Time Discharge Diagnosis 1. Chest pain, assess for acute coronary syndrome with negative troponins x3 at this time. 2. Abnormal electrocardiogram with diffuse nonspecific ST and T-wave abnormalities, assess for acute coronary syndrome. 3. Premature ventricular contractions by electrocardiogram, assess for acute coronary syndrome. 4. Hypertension, reasonable control. 5. Dyslipidemia. 6. History of coronary artery disease, status post coronary artery bypass grafting surgery with patient having a patent graft to diagonal retrograde filling the LAD and right coronary artery by catheterization in 2016 with presumed occluded saphenous vein graft to circumflex distribution. 7. Neuropathy. Procedures PROCEDURE: Lexiscan myocardial perfusion study CLINICAL INDICATION: 78 -year-old patient complaining of chest pain. TECHNIQUE: Lexiscan 0.4 mg intravenously separate acquisition gated myocardial perfusion SPECT using Tc 99m Myoview 29.6 mCi intravenously at stress and Tc-99m Myoview, 9.4 mCi intravenously at rest was performed using the rest/stress sequence. Poststress Myoview SPECT images were obtained in the supine position. COMPARISON: No prior studies. FINDINGS: Perfusion images reveal a moderate size severe in degree nonreversible perfusion defect in the inferoapical and lateral peters. No evidence of stress-induced ischemia. Lexiscan post stress gated SPECT images demonstrate mild hypokinesis of the inferior and lateral peters. IMPRESSION: 1. The type and distribution of the scintigraphic abnormalities are most consistent with a moderate-sized nonreversible perfusion defect in the inferoapical and lateral peters likely due to myocardial infarction. 2. Mild hypokinesis of the inferior and lateral peters. 3. The left ventricle ejection fraction at stress is 46%. A call report was made to Dr. Duncan at 01:36 p.m. on December 17, 2018. RPTAT: HH .Catherine Jordan MD, Date Time Electronically viewed and signed by .Catherine Jordan MD, on 12/17/2018 13:40 .L/ CC: DUNCANMINNIE Velez [id number] Hospital Course S: no chest pain today, refused chest CT yesterday, but ok to do it now O: Constitutional: alert, oriented, elderly, no distress Head: atraumatic, normocephalic Neck: non-tender, supple Respiratory: clear to auscultation Cardiovascular: regular rate and rhythm Gastrointestinal: S/ NT / ND / +BS Extremities: no edema, good radial pulses assessment and plan: 1. Chest pain: Rule out ACS -patient has had 3 negative cardiac enzymes but is still symptomatic with an extensive cardiac hx -last stress test was 5 years ago -f/u stress test and CT chest 2. Hypertension: controlled on current meds 3. Dyslipidemia: Continue statin 4. Hypokalemia: Replete 5. Chronic headaches on Vimpat further interventions per course. Home Meds Reported Medications Calcium Carbonate ([place]-500) 500 Mg Tablet, 500 MG PO, TAB 02/25/18 Cholecalciferol* (Vitamin D3*) 1,000 Unit Tablet, 3000 UNIT PO DAILY, TAB 02/25/18 Aspirin* (Aspirin* EC) 81 Mg Tablet.dr, 81 MG PO DAILY, TAB 02/25/18 Clopidogrel Bisulfate* (Clopidogrel Bisulfate*) 75 Mg Tablet, 75 MG PO DAILY, #30 TAB 02/25/18 Losartan Potassium* (Losartan Potassium*) 25 Mg Tablet, 25 MG PO BID, TAB 02/25/18 Gabapentin* (Gabapentin*) 300 Mg Capsule, 300 MG PO BID, #60 CAP 02/25/18 Terbinafine* (Lamisil*) 250 Mg Tablet, 250 MG PO BID, TAB 02/25/18 Atenolol* (Atenolol*) 50 Mg Tablet, 50 MG PO DAILY, #30 TAB 02/25/18 Olopatadine HCl ([place]) 2.5 Ml Drops, 2.5 ML OP DAILY, BOTTLE 10/26/17 Lacosamide (Vimpat) 100 Mg Tablet, 100 MG PO BID, TAB 10/26/17 Ezetimibe/Simvastatin (Vytorin 10-40 mg Tablet) 1 Each Tablet, 1 EACH PO DAILY, TAB 10/26/17 Solifenacin* (Vesicare*) 5 Mg Tablet, 5 MG PO DAILY, TAB 01/09/16 Primary Care Provider Not On Staff Doctor Pending Labs Laboratory Tests Test 12/17/18 05:09 Magnesium Level 2.2 mg/dl (1.7-2.5) Triglycerides Level 78 mg/dl (0-149) Cholesterol Level 180 mg/dl (100-200) LDL Cholesterol, Calculated 84 mg/dl HDL Cholesterol 80 mg/dl (33-92) Cholesterol/HDL Ratio 2.2 RATIO GARY HALLMAN Dec 17, 2018 14:48
[2018-12-17] MEDS ORDERED: CARV6.2579 PO (14:50)
--- NOTE | 2018-12-17 14:54 | PDOCDIS ---
Discharge Instructions DIAGNOSIS Discharge Diagnosis 1. Chest pain,resolved 2. Abnormal electrocardiogram with diffuse nonspecific ST and T-wave abnormalities, assess for acute coronary syndrome. 3. Premature ventricular contractions by electrocardiogram, assess for acute coronary syndrome. 4. Hypertension, reasonable control. 5. Dyslipidemia. 6. History of coronary artery disease, status post coronary artery bypass grafting surgery with patient having a patent graft to diagonal retrograde filling the LAD and right coronary artery by catheterization in 2016 with presumed occluded saphenous vein graft to circumflex distribution. 7. Neuropathy. 8. Chronic headaches on Vimpat . CONDITION [id number] Patient Condition: [id number] Stable HOME CARE INSTRUCTIONS: [id number] Diet Instructions: [id number] Low Fat /Cholesterol ACTIVITY: [id number] Activity Restrictions: [id number] Slowly Increase Activity Rest between Activity FOLLOW UP/APPOINTMENTS Follow-up Plan 1. Followup with your primary doctor within the next 1-2 weeks. If you don't have one please let someone know, we can give you resources that may help you pick one. You may call Dr Eddie Hazel's office. he's accepting new patients Name, Degree: Eddie Hazel MD Specialty: Internal Medicine Comments: Office Address: [address] [place] [id number] Office Office You may also call your insurance company to assign one to you. 2. You should also followup with your regular airdrop systems technician If you don't have one, you may followup with Dr Duncan who saw you here in the hospital Name, Degree: Dilshad Duncan MD Specialty: Cardiology Office Address: [address] [place] [address] Office Office Registered Nurse First Assistant: Samantha Chowdhury 3. Review your medication list with your nurse before leaving and if you need new prescriptions please let your nurse know. 4. I have made changes to your home medications and given you new prescriptions, please let your primary doctor know as well. 5. Stay compliant with your medications and report any side effects to your PCP or pharmacist. 6. Return to the ER if you have any concerns and cannot reach your doctors or call your insurance company, they usually have a nurse that can help you. . GARY HALLMAN Dec 17, 2018 14:54
--- NOTE | 2018-12-17 17:31 | CARRPT ---
DATE OF PROCEDURE: 12/17/2018 TYPE OF PROCEDURE: Lexiscan Cardiolite stress test, electrocardiogram portion. INDICATIONS: Chest pain, assess for ischemia. History of CABG. BASELINE VITAL SIGNS AND ELECTROCARDIOGRAM: Pulse 69, blood pressure 153/88. Electrocardiogram reve als normal sinus rhythm, a rate of 69 with a borderline 1st-degree AV block, PACs and nonspecific ST abnormalities diffusely. DESCRIPTION OF PROCEDURE: The patient underwent standard Lexiscan infusion protocol over 10 seconds followed by radiolabeled tracer. The patient's test was stopped due to completion of protocol. Maxi mal achieved blood pressure during the test 161/95. Maximal heart rate during the test 78. ELECTROCARDIOGRAM FINDINGS: The patient did not develop any new Lexiscan-induced ST or T-wave change s from baseline abnormalities. Occasional PVCs. SYMPTOMS: The patient had no complaints of chest pain or shortness of breath during stress testing. IMPRESSION: 1. No Lexiscan-induced ST or T-wave changes from baseline abnormalities diagnostic for ischemia. 2. No complaints of chest pain or shortness of breath during stress test. 3. Occasional premature ventricular contractions during stress test. 4. Report of nuclear images to follow in a separate dictation. Dictated By: MINNIE VALENCIA/NTS Conf#: [id number] DID#: [id number] CC: ALETHEA SNELL MD; GARY HALLMAN MD;*End*
--- NOTE | 2018-12-20 08:36 | RADRPT ---
Vent Rate: 69 bpm RR Interval: 0 msec ID Interval: 214 msec QRS Duration: 96 msec QT Interval: 400 msec QTC Interval: 428 msec P-R-T [place]: 11 - 5 - 43 degrees Sinus rhythm with 1st degree AV block with premature atrial complexes Possible Left atrial enlargement Incomplete right bundle branch block Nonspecific T wave abnormality Abnormal ECG Electronically Signed By: Dilshad Duncan
== END 2018-12-17 19:20 | disposition home or self-care (01) ==
LOC: E/R 17:07 → 6WM 18:24
PROVIDERS: ADMIT Internal Medicine; ATTEND Family Medicine
DX: R07.9 Chest pain, unspecified (principal); R94.31 Abnormal electrocardiogram [ECG] [EKG]; I49.3 Ventricular premature depolarization; I10 Essential (primary) hypertension; E78.5 Hyperlipidemia, unspecified; I25.10 Atherosclerotic heart disease of native coronary artery without angina pectoris; Z95.5 Presence of coronary angioplasty implant and graft; Z95.1 Presence of aortocoronary bypass graft; E78.00 Pure hypercholesterolemia, unspecified; G62.9 Polyneuropathy, unspecified; Z86.73 Personal history of transient ischemic attack (TIA), and cerebral infarction without residual deficits; Z79.82 Long term (current) use of aspirin; I25.2 Old myocardial infarction; E87.6 Hypokalemia
CPT/HCPCS: 36415; 71045; 71250; 78452; 80053; 80061; 82550; 82553; 83036; 83735; 83880; 84484; 85025; 93005; 93017; 93306; 99285; A9500; A9505; G0378; J2270; J2785; J3475